=== PATIENT | male | born 1965 | race Caucasian/White ===

== ENCOUNTER 2022-07-17 08:00 | Outpatient (CLI) | payer BC, OTHER ==
[~2022-07-17] VITALS: Ht 190.5 cm; Wt 136.1 kg
[2022-07-17] MEDS ORDERED: TEST75GE10 TOP (09:54)
[2022-07-17] MEDS ORDERED: LOSA50TA64 PO (09:54)
[2022-07-17 09:55] LABS: BASOPHILS # (AUTO) 0.1 X10'3 (0-0.2); BASOPHILS % (AUTO) 0.6 % (0-1); EOSINOPHILS # (AUTO) 0.2 X10'3 (0-0.9); EOSINOPHILS % (AUTO) 1.6 % (0-6); LYMPHOCYTES # (AUTO) 2.4 X10'3 (1.1-4.8); LYMPHOCYTES % (AUTO) 24.5 % (21-51); MEAN CORPUSCULAR HEMOGLOBIN 31.1 PG (27.0-31.0); MEAN CORPUSCULAR HGB CONC 34.5 g/dL (33.0-36.5); MEAN CORPUSCULAR VOLUME 90.1 FL (78-98); MEAN PLATELET VOLUME 7.7 FL (7.4-10.4); MONOCYTES # (AUTO) 0.8 X10'3 (0-0.9); MONOCYTES % (AUTO) 8.2 % (2-12); NEUTROPHILS # (AUTO) 6.4 X10'3 (1.8-7.7); NEUTROPHILS % (AUTO) 65.1 % (42-75); PRE OP HEMATOCRIT 41.9 % (42.0-52.0); PRE OP HEMOGLOBIN 14.5 g/dL (14.0-17.9); PRE OP PLATELET COUNT 367 X10'3 (140-440); RED BLOOD COUNT 4.66 X10'6 (4.70-6.10); RED CELL DISTRIBUTION WIDTH 13.1 % (11.5-14.5)
[2022-07-17 10:45] LABS: ALBUMIN 3.8 G/DL (3.4-5.0); ALKALINE PHOSPHATASE 81 IU/L (46-116); BLOOD UREA NITROGEN 18 MG/DL (7-18); BUN/CREATININE RATIO 17.1 (5.4-32.0); CALCIUM 9.3 MG/DL (8.5-10.1); CHLORIDE 103 MMOL/L (99-107); CREATININE 1.05 MG/DL (0.60-1.10); PRE OP ANION GAP 8 (8-16); PRE OP BILIRUB, TOTAL 0.5 MG/DL (0.0-1.0); PRE OP GLUCOSE 112 MG/DL (70-104); PRE OP SODIUM 137 MMOL/L (135-145); TOTAL CARBON DIOXIDE 25.8 MMOL/L (24-32); TOTAL PROTEIN 7.8 G/DL (6.4-8.2); eGFR 73 ML/MIN
[2022-07-17 10:58] LABS: PRE OP AST 37 U/L (10-37); PRE OP POTASSIUM 4.2 MMOL/L (3.4-5.1)
[2022-07-17 11:14] LABS: PRE OP ALT 80 U/L (30-65)
[2022-07-19] MEDS ORDERED: ringers solution, lacted 1,000 ML IV SCH (05:00)
[2022-07-19] MEDS ORDERED: famotidine 20mg tablet PO ONE (05:30)
[2022-07-19] MEDS ORDERED: ceFAZolin inj. 3,000 MG in normal saline 100ml IV soln 100 ML IV ONE (05:30)
== END 2022-07-17 23:00 | disposition home or self-care (01) ==
LOC: LAB 08:00 → EDSTATUS 07-19 12:30
PROVIDERS: ATTEND Orthopaedic Surgery Hand Surgery
DX: Z01.818 Encounter for other preprocedural examination (principal); G56.02 Carpal tunnel syndrome, left upper limb; G56.22 Lesion of ulnar nerve, left upper limb; M19.90 Unspecified osteoarthritis, unspecified site; Z85.528 Personal history of other malignant neoplasm of kidney; Z90.5 Acquired absence of kidney; Z98.890 Other specified postprocedural states; Z79.899 Other long term (current) drug therapy
CPT/HCPCS: 36415; 80053; 85025; J0690; J3490; J7120

== ENCOUNTER 2022-08-19 06:38 | Day surgery (SDC) | payer BC, OTHER ==
[2022-08-12 15:48] LABS: BASOPHILS # (AUTO) 0.1 X10'3 (0-0.2); BASOPHILS % (AUTO) 0.5 % (0-1); EOSINOPHILS # (AUTO) 0.1 X10'3 (0-0.9); LYMPHOCYTES # (AUTO) 2.9 X10'3 (1.1-4.8); LYMPHOCYTES % (AUTO) 29.5 % (21-51); MEAN CORPUSCULAR HEMOGLOBIN 31.2 PG (27.0-31.0); MEAN CORPUSCULAR HGB CONC 34.4 g/dL (33.0-36.5); MEAN CORPUSCULAR VOLUME 90.6 FL (78-98); MEAN PLATELET VOLUME 7.6 FL (7.4-10.4); MONOCYTES # (AUTO) 0.7 X10'3 (0-0.9); MONOCYTES % (AUTO) 7.2 % (2-12); NEUTROPHILS # (AUTO) 6.2 X10'3 (1.8-7.7); NEUTROPHILS % (AUTO) 61.8 % (42-75); PRE OP HEMATOCRIT 44.5 % (42.0-52.0); PRE OP HEMOGLOBIN 15.3 g/dL (14.0-17.9); PRE OP PLATELET COUNT 314 X10'3 (140-440); RED CELL DISTRIBUTION WIDTH 13.3 % (11.5-14.5)
[2022-08-12 16:08] LABS: ALKALINE PHOSPHATASE 81 IU/L (46-116); BLOOD UREA NITROGEN 14 MG/DL (7-18); BUN/CREATININE RATIO 12.6 (10.0-20.0); CALCIUM 9.4 MG/DL (8.5-10.1); CHLORIDE 99 MMOL/L (99-107); CREATININE 1.11 MG/DL (0.60-1.10); PRE OP ALT 79 U/L (30-65); PRE OP ANION GAP 12 (8-16); PRE OP AST 47 U/L (10-37); PRE OP BILIRUB, TOTAL 0.4 MG/DL (0.0-1.0); PRE OP GLUCOSE 119 MG/DL (70-104); PRE OP SODIUM 139 MMOL/L (135-145); TOTAL CARBON DIOXIDE 27.8 MMOL/L (24-32); eGFR 68 ML/MIN
[2022-08-12 16:24] LABS: PRE OP POTASSIUM 3.8 MMOL/L (3.4-5.1)
[~2022-08-19] VITALS: Ht 188 cm; Wt 136.1 kg
[2022-08-19] VITALS (9 sets, daily range): BP systolic 103–157; BP diastolic 74–96
[~2022-08-19 06:38] MED LIST: LOSA50TA64 PO; TEST75GE10 TOP; ceFAZolin inj. 3,000 MG in normal saline 100ml IV soln 100 ML IV ONE; famotidine 20mg tablet PO ONE; ringers solution, lacted 1,000 ML IV SCH
[2022-08-19] MEDS ORDERED: LIDOcaine 0.5% (5mg/ml) 50ml vial ONE (07:22)
[2022-08-19] MEDS ORDERED: BUPIVAcaine/PF 2.5 mg/ml (0.25%) 30ml vial ONE (07:22)
[2022-08-19] MEDS ORDERED: acetaminophen 1,000mg/100ml IV 100 ML IV PRN ×2 (07:30→07:35)
[2022-08-19] MEDS ORDERED: hydrALAZINE 20mg/ml inj. IV PRN ×2 (07:30→07:35)
[2022-08-19] MEDS ORDERED: labetalol 20mg/4ml (5mg/ml) syringe IV PRN ×2 (07:30→07:35)
[2022-08-19] MEDS ORDERED: morphine 4 MG/ML inj SYRINge IV PRN ×2 (07:30→07:35)
[2022-08-19] MEDS ORDERED: proCHLORperazine 10 MG/2 ml inj IV PRN ×2 (07:30→07:35)
[2022-08-19] MEDS ORDERED: morphine 2 MG/ML inj. syringe IV PRN ×2 (07:30→07:35)
[2022-08-19] MEDS ORDERED: meperidine/PF 25mg/ml syringe IV PRN ×5 (07:30→07:35)
[2022-08-19] MEDS ORDERED: ondansetron/PF 4mg/2ml inj IV PRN ×2 (07:30→07:35)
[2022-08-19] MEDS ORDERED: ringers solution, lacted 1,000 ML IV SCH ×2 (07:30→07:35)
[2022-08-19] MEDS ORDERED: ketorolac trometh. 30mg/ml inj. IV ONE (07:35)
[2022-08-19] MEDS ORDERED: fentaNYL/PF 50MCG/1 ML 2ML syringe ONE (09:11)
[2022-08-19] MEDS ORDERED: midazolam 1 mg/ML 2ml injection ONE (09:11)
[2022-08-19] MEDS ORDERED: propofol inj 20 ML IV ONE (09:37)
[2022-08-19] MEDS ORDERED: LIDOcaine 2% (20mg/ml) 5ml vial ONE (09:42)
--- NOTE | 2022-08-19 09:57 | NUR ---
Received from OR via , accompanied by Anesthesiologist DR MOODY and report given by Anesthesiolgist. VSS, PATIENT SATES NO PAIN CURRENTLY. 20 G IV IN RIGHT HAND. ON ROOM AIR. [id number] WITH PARISH BANDAGE ON LEFT ELBPW AND HAND. Addendum: 08/19/22 at 1103 by Alice Oconnell RN Amended: Links added.
--- NOTE | 2022-08-19 10:57 | NUR ---
PATIENT MEETS DISCHARGE CRITERIA. VSS. IV DC'D WITH NO ISSUES. EDUCATED PATIENT ON DISCAHRGE ORDERS. PATIENT LEFT WITH HIS WALLET AND PHONE IN HIS POCKET. Addendum: 08/19/22 at 1107 by Alice Oconnell RN Amended: Links added.
== END 2022-08-19 10:57 | disposition home or self-care (01) ==
LOC: PAS 06:38
PROVIDERS: ATTEND Orthopaedic Surgery Hand Surgery
DX: G56.02 Carpal tunnel syndrome, left upper limb (principal); G56.22 Lesion of ulnar nerve, left upper limb; I10 Essential (primary) hypertension; E66.9 Obesity, unspecified; Z68.41 Body mass index [BMI] 40.0-44.9, adult; M48.02 Spinal stenosis, cervical region; M19.90 Unspecified osteoarthritis, unspecified site; Z85.528 Personal history of other malignant neoplasm of kidney; Z79.899 Other long term (current) drug therapy; Z98.890 Other specified postprocedural states; Z90.5 Acquired absence of kidney; Z80.9 Family history of malignant neoplasm, unspecified
CPT/HCPCS: 29848; 36415; 64718; 80053; 82948; 85025; J0131; J0690; J1885; J2250; J2704; J3010; J3490; J7030; J7120; Z7506; Z7512; A4215; A6449; A7000